=== PATIENT | female | born 1980 | race Caucasian/White ===

== ENCOUNTER 2022-02-17 01:51 | Emergency (ER) | payer SELFPAY ==
[~2022-02-17] VITALS: Ht 167.6 cm; Wt 60.0 kg
[2022-02-17] MEDS ORDERED: MOTRIN800 MG PO (02:31)
[2022-02-17] MEDS ORDERED: GENTAMICIN0.3 % OS (02:31)
[2022-02-17 02:34] VITALS: BP 106/72
== END 2022-02-17 02:41 | disposition home or self-care (01) | DRG 122 ==
LOC: ED 01:51
DX: H16.002 Unspecified corneal ulcer, left eye (principal); Z91.14 Patient's other noncompliance with medication regimen